=== PATIENT | female | born 1970 | race American Indian/Alaskan Native ===

== ENCOUNTER 2017-04-17 12:00 | Emergency (ER) | payer SELFPAY ==
--- NOTE | 2017-04-17 15:35 | Emergency Department Report ---
ED Fall HPI - General Chief Complaint: Eye Problems Stated Complaint: LEFT EYE INJURY Time Seen by Provider: 04/17/17 15:28 Source: patient, family Mode of arrival: Ambulatory - History of Present Illness Initial Comments: Patient reports that she had a fallshe had left facial injury around her left eye. Denies any blurred vision or difficulty seeing. She is complaining of left-sided headache from frontal to occipital area. She said the pain is 8 out of 10 and it feels tense and aching. She is also saying that she is having pain at her left eye where she got hit by a ladder. She said that she does not have any blurred vision and she is able to see. She was brought here by [facility]. She denies any laceration or any foreign body in her eye. Denies any decrease in vision. She said her pain is located worse she got hit but is radiating her head. She says she fell and the object fell on her but denies any loss of consciousness or direct trauma to head. Denies taking any medication for pain. Her blood pressure is 164/102 and she says she does not have any medical problem she has a history of and hysterectomy. MD Complaint: fall -: This afternoon Fall From: standing When Fall Occurred: 1 hour [facility] Fall Witnessed: yes, by bystander Place Fall Occurred: work Loss of Consciousness: none Prolonged Down Time?: no Symptoms Prior to Fall: none Location: head, face Severity: severe Severity scale (0 -10): 8 Quality: aching, other (tight) Context: tripped/slipped Associated Symptoms: headache, lightheaded. denies: neck pain, numbness, weakness, chest paint, shortness of breath, abdominal pain, hematuria, unable to walk, vertigo, confusion - Related Data Previous Rx's Medication Instructions Recorded Last Taken Type Ibuprofen [Motrin] 600 mg PO Q8H PRN #15 tablet 04/17/17 Unknown Rx Allergies Allergy/AdvReac Type Severity Reaction Status Date / Time No Known Allergies Allergy Unverified 04/17/17 14:39 ED Review of Systems ROS: Stated complaint: LEFT EYE INJURY Other details as noted in HPI Comment: All other systems reviewed and negative Constitutional: no symptoms reported Eyes: denies: eye pain, eye discharge, vision change Respiratory: no symptoms reported Cardiovascular: denies: chest pain, palpitations, edema, syncope Gastrointestinal: denies: abdominal pain, nausea, vomiting, diarrhea, constipation, hematemesis, melena, hematochezia Musculoskeletal: denies: back pain, joint swelling, arthralgia, myalgia Skin: denies: rash Neurological: headache, abnormal gait. denies: weakness, numbness, paresthesias , confusion, vertigo ED Past Medical Hx - Past Medical History Previous Medical History?: No - Surgical History Past Surgical History?: Yes Additional Surgical History: x 1,Partial hysterectomy - Family History Family history: no significant - Social History Smoking Status: Current Every Day Smoker Substance Use Type: None - Medications Home Medications: Home Medications Medication Instructions Recorded Confirmed Last Taken Type Ibuprofen [Motrin] 600 mg PO Q8H PRN #15 tablet 04/17/17 Unknown Rx ED Physical Exam - General Limitations: No Limitations General appearance: alert, in no apparent distress - Head Head exam: Present: atraumatic, normocephalic, normal inspection - Expanded Head Exam Expanded Head exam: Present: other (left facial tenderness). Absent: laceration, abrasion, contusion, hematoma, racoon eyes, judge's sign, general tenderness, tenderness of temporal artery, CSF rhinorrhea, CSF otorrhea - Eye Eye exam: Present: normal appearance, PERRL, EOMI. Absent: scleral icterus, conjunctival injection, nystagmus, periorbital swelling, periorbital tenderness Pupils: Present: normal accommodation - Expanded Eye Exam Expanded Eyelids: Normal Inspection: Left (bilateral) Pupils: Regular, Round: Bilateral, Reactive: Bilateral Sclera/Conjunctival: Normal Inspection: Bilateral Anterior chamber: Normal Inspection: Bilateral Posterior chamber: Normal Inspection: Bilateral Visual acuity (R) = 20/: 15 Visual acuity (L) = 20/: 20 (20/20 both eyes) - ENT ENT exam: Present: normal exam, normal orophraynx, mucous membranes moist, TM's normal bilaterally, normal external ear exam - Neck Neck exam: Present: normal inspection, full ROM, other (no C-spine tenderness). Absent: tenderness, meningismus, lymphadenopathy, thyromegaly - Respiratory Respiratory exam: Present: normal lung sounds bilaterally. Absent: respiratory distress, wheezes, rales, rhonchi, stridor, chest wall tenderness, accessory muscle use, decreased breath sounds - Cardiovascular Cardiovascular Exam: Present: regular rate, normal rhythm, normal heart sounds. Absent: systolic murmur, diastolic murmur - GI/Abdominal GI/Abdominal exam: Present: soft, normal bowel sounds. Absent: distended, tenderness, guarding, rebound, rigid, organomegaly, mass, bruit, pulsatile mass - Extremities Exam Extremities exam: Present: normal inspection, full ROM, normal capillary refill , other (no clubbing, cyanosis or edema. +2 pulses to all extremities. No neurovascular compromise). Absent: tenderness, pedal edema, joint swelling, calf tenderness - Back Exam Back exam: Present: normal inspection, full ROM, other (patient able to ambulate without any difficulties). Absent: tenderness, CVA tenderness (R), CVA tenderness (L), muscle spasm, paraspinal tenderness, vertebral tenderness, rash noted - Expanded Back Exam Expanded Back exam: Absent: saddle anesthesia Back exam: Negative Straight Leg Raising: Left, Right - Neurological Exam Neurological exam: Present: alert, oriented X3, normal gait, reflexes normal. Absent: motor sensory deficit - Expanded Neurological Exam Expanded Neurological exam: Absent: innattentive, memory loss-remote event, memory loss- recent event, ataxia, receptive aphasia, expressive aphasia, total aphasia, tremor, protecting the airway Patient oriented to: Present: person, place, time Speech: Present: fluid speech Cranial nerves: EOM's Intact: Normal, Gag Reflex: Normal, Tongue Deviation: Normal, Nystagmus: Normal, Facial Sensation: Normal Cerebellar function: Romberg: Normal Upper motor neuron: Pronator Drift: Normal, Sensory Extinction: Normal Sensory exam: Upper Extremity Light Touch: Normal, Upper Extremity Pin Prick: Normal, Upper Extremity Temperature: Normal, UE 2 Point Discrimination: Normal, Lower Extremity Light Touch: Normal, Lower Extremity Pin Prick: Normal, Lower Extremity Temperature: Normal, LE 2 Point Discrimination: Normal Motor strength exam: RUE: 5, LUE: 5, RLE: 5, LLE: 5 DTR: bicep (R): 2+, bicep (L): 2+, tricep (R): 2+, tricep (L): 2+, knee (R): 2+ , knee (L): 2+, ankle (R): 2+, ankle (L): 2+ Best Eye Response ([place]): (4) open spontaneously Best Motor Response ([place]): (6) obeys commands Best Verbal Response ([place]): (5) oriented [place] Total: 15 - Psychiatric Psychiatric exam: Present: normal affect, normal mood - Skin Skin exam: Present: warm, dry, intact, normal color. Absent: rash ED Course Vital Signs 04/17/17 14:39 Temperature 98.3 F Pulse Rate 64 Respiratory 18 Rate Blood Pressure 164/102 O2 Sat by Pulse 100 Oximetry Vital Signs 04/17/17 04/17/17 14:39 18:19 Temperature 98.3 F Pulse Rate 64 71 Respiratory 18 Rate Blood Pressure 164/102 Blood Pressure 163/97 [Right] O2 Sat by Pulse 100 Oximetry - Reevaluation(s) Reevaluation #1: 04/17/17 18:17 Patient was given Tylenol No. 3 2 tablets emergency room for headache.Upon Revaluation, voiced releif of AHMADI after pain medication. She is able to ambulate in the hallway without any difficulties. Visual acuity stable. Neuro exam remained stable. Patient able to ambulate in the hallway without any difficulties. Her blood pressure was elevated upon arrival but prior to discharge it was mildly elevated. I discussed the patient that she needs to keep a log of her blood pressure since she has not been diagnosed with high blood pressure and take it to her primary care visit with her for reassessment. ED Medical Decision Making - Radiology Data Radiology results: report reviewed CT scan of the facial bones reveal no acute abnormalities. Incidental findings for hypodense nodule in the left lobe of the thyroid. Patient says she does not have any history of thyroid problem. I discussed with her that radiologist recommends that she gets ultrasound of her thyroid. No thyroid abnormality felt with exam. - Medical Decision Making ED course: Patient status post fall at work. She was brought to the emergency room by EMS. Patient says she was having severe head pain and she was having left facial pain. Denies any direct injury to eye. Her visual acuity was stable. Patient blood pressure elevated upon arrival in emergency room at 164/ 102 but has stabilized since her pain is better. Patient is able to ambulate in the hallway without any difficulties. I examined his normal and she is neurologically intact. CT scan of the head revealed no acute intracranial findings, CT scan of the facial bones reveal no acute abnormalities except for incidental finding of 4 left lobe of thyroid nodule. Patient will be given CD and CT scan report for follow-up visit with her primary care physician. Patient given Tylenol 3 2 tablets emergency room for pain and she voiced relief of pain. I discussed the patient the results of her CT findings and I told her that she needs to follow-up and bring CT scan report along with CD to primary care visit and they will refer her for outpatient ultrasound of her thyroid gland. Patient discharged home in stable condition to return to emergency room if she developed recurrent headache, nausea and/or vomiting, dizziness, difficulty staying awake or visual disturbances. Discharge home with her family member in stable condition with prescription for Motrin. Critical care attestation.: If time is entered above; I have spent that time in minutes in the direct care of this critically ill patient, excluding procedure time. ED Disposition Clinical Impression: Minor closed head injury, Left thyroid nodule, Blood pressure elevated without history of HTN, Left facial pain Accidental fall Qualifiers: Encounter type: initial encounter Qualified Code(s): W19.XXXA - Unspecified fall, initial encounter Post-traumatic headache, not intractable Qualifiers: Headache chronicity pattern: acute headache Qualified Code(s): G44.319 - Acute post-traumatic headache, not intractable Disposition: DC-01 TO HOME OR SELFCARE Is pt being admited?: No Does the pt Need Aspirin: No Condition: Stable Instructions: Minor Head Injury (ED), Fall Prevention (ED), Thyroid Nodules (ED ), Hypertension (ED), How to Take a Blood Pressure (ED), Acute Headache (ED), Musculoskeletal Pain (ED) Additional Instructions: Follow-up the primary care physician tomorrow and if he do not have a primary care physician follow-up at [facility] [place]. Please monitor your blood pressure daily and schedule a repeat visit to primary care physician and take along with you for evaluation. Your blood pressure was elevated today. Please see discharge instruction on closed head injury, thyroid nodule and blood pressure monitoring Please take CD of CT scan and also CT scan reports to your follow-up visit. Return to the emergency room, if you develop increasing headache, nausea and vomiting, dizziness, blurred vision, difficulty staying awake otherwise follow up with primary care physician Prescriptions: Ibuprofen [Motrin] 600 mg PO Q8H PRN #15 tablet PRN Reason: Pain Referrals: PRIMARY CAREMD [Primary Care Provider] - 04/18/17 [facility] [Outside] - 04/18/17 Forms: Accompanied Note, Work/School Release Form(ED)
[2017-04-17] MEDS ORDERED: TYLENOL #3 PO ONE (15:38)
--- NOTE | 2017-04-17 17:08 | Cat Scan Report ---
FINAL REPORT EXAM: CT HEAD/BRAIN WO CON HISTORY: fall with head injury and pain TECHNIQUE: Standard unenhanced CT of the head at 5.0 millimeter axial increments. PRIORS: None. FINDINGS: The ventricular system is normal in size and configuration. There is no evidence for parenchymal volume loss. There is no evidence for mass lesion, mass effect, midline shift, acute intracranial hemorrhage, or acute ischemia/ infarction. No evidence for acute skull fracture is seen. No abnormality in the overlying scalp soft tissues is seen. Visualized paranasal sinuses are clear. IMPRESSION: Negative CT of the head. No acute intracranial process noted.
--- NOTE | 2017-04-17 17:16 | Cat Scan Report ---
FINAL REPORT EXAM: CT FACIAL BONES WO CON HISTORY: fall with facial injury TECHNIQUE: Standard unenhanced CT facial bones at 1.25 mm axial increments with coronal and sagittal reconstruction PRIORS: None. FINDINGS: No evidence for acute bony fracture is noted. The frontal, ethmoid, maxillary, and sphenoid sinuses are clear with no evidence for air-fluid levels or mucosal thickening. Nasal septum is midline. The orbits are intact. The orbital globes are normal. The visualized mastoid air cells are also clear. No overlying soft tissue abnormality is seen. Incidental note is made of an enlarged left lobe of the thyroid containing a 2.4 x 2.0 x 3.1 cm rounded hypodense focus (axial image 7, series 3 and coronal image 75). Ultrasound is warranted. IMPRESSION: 1. normal CT of the facial bones. No evidence for acute fracture. 2. Incidental a hypodense nodule in the left lobe of the thyroid. Ultrasound is warranted.
[2017-04-17 18:20] VITALS: BP 163/97
== END 2017-04-17 18:56 | disposition home or self-care (01) ==
LOC: ED 12:00
DX: S09.90XA Unspecified injury of head, initial encounter (principal); G44.309 Post-traumatic headache, unspecified, not intractable; E04.1 Nontoxic single thyroid nodule; R03.0 Elevated blood-pressure reading, without diagnosis of hypertension; F17.210 Nicotine dependence, cigarettes, uncomplicated; W18.30XA Fall on same level, unspecified, initial encounter; Y93.89 Activity, other specified; Y92.89 Other specified places as the place of occurrence of the external cause; Y99.8 Other external cause status
CPT/HCPCS: 70450; 70486; 99283